=== PATIENT | male | born 1955 | race Caucasian/White ===

== ENCOUNTER 2023-03-09 13:49 | Emergency (ER) | payer OTHER ==
[~2023-03-09] VITALS: Ht 180.3 cm; Wt 68.0 kg
[2023-03-09 13:50] VITALS: BP_SYST 138
[2023-03-09] MEDS ORDERED: SIMV-343 PO (14:03)
[2023-03-09] MEDS ORDERED: METO25TA6 PO (14:03)
[2023-03-09] MEDS ORDERED: FAMO20TA8 PO (14:03)
[2023-03-09] MEDS ORDERED: LIDOCAINE 1% 10 MG/ML, 20 ML MDV INJ ONE (16:45)
[2023-03-09] MEDS ORDERED: ACET-2634 PO (16:52)
[2023-03-09 18:00] VITALS: BP_SYST 145
== END 2023-03-09 17:40 | disposition home or self-care (01) ==
LOC: SED 13:49
DX: S01.01XA Laceration without foreign body of scalp, initial encounter (principal); E78.5 Hyperlipidemia, unspecified; I10 Essential (primary) hypertension; Z79.899 Other long term (current) drug therapy; W10.9XXA Fall (on) (from) unspecified stairs and steps, initial encounter; Y93.89 Activity, other specified; Y92.89 Other specified places as the place of occurrence of the external cause; Y99.8 Other external cause status
CPT/HCPCS: 99284; 70450; 76376; 12002; J2001

== ENCOUNTER 2023-03-19 07:16 | Emergency (ER) | payer OTHER ==
[~2023-03-19 07:16] MED LIST: ACET-2634 PO; FAMO20TA8 PO; METO25TA6 PO; SIMV-343 PO
[2023-03-19] MEDS ORDERED: BACITRACIN 1 GM OINT TP ONE ×2 (07:40→07:45)
[2023-03-19 07:53] VITALS: BP_SYST 132
[2023-03-19 08:05] VITALS: BP_SYST 132
== END 2023-03-19 07:47 | disposition home or self-care (01) ==
LOC: SED 07:16
DX: S01.01XD Laceration without foreign body of scalp, subsequent encounter (principal); Z48.02 Encounter for removal of sutures; W45.8XXD Other foreign body or object entering through skin, subsequent encounter
CPT/HCPCS: 99282